=== PATIENT | male | born 1955 | race Caucasian/White ===

== ENCOUNTER → 2016-12-03 | Outpatient (CLI) | payer OTHER ==
[~2016-12-03] MED LIST: ASPIRIN PO; FLEXERIL10 M1 PO; GLUCOPHAGE500 M1 PO; GLUCOTROL XL PO; IBUPROFEN800 MG PO; MULTI-VITAMIN1 EAC1 PO; OMEGA 3; PRAVACHOL20 MG PO; TRICOR PO; VITAMIN B 12; VITAMIN D 3
[2016-12-03 11:12] LABS: CALCIUM SERUM 9.3 mg/dL (8.4-10.2); GLOM FILT RATE Estimated 80.3 mL/min (>60); POTASSIUM 4.2 mmol/L (3.5-5.1)
== END | disposition home or self-care (01) ==
LOC: CLAB 09:30
PROVIDERS: Internal Medicine Endocrinology, Diabetes & Metabolism
DX: E78.4 Other hyperlipidemia (principal); E11.65 Type 2 diabetes mellitus with hyperglycemia
CPT/HCPCS: 36415; 80048; 80061; 83036